=== PATIENT | female | born 1995 | race Caucasian/White ===

== ENCOUNTER 2023-12-08 15:11 | Emergency (ER) | payer MEDICAID ==
[2023-12-08] MEDS ORDERED: Ondansetron PF 4 MG/2 ML Vial ONE (15:46)
[2023-12-08] MEDS ORDERED: Sodium Chloride 0.9% 1,000 ML ONE (15:46)
[2023-12-08 16:13] LABS: #Basophils 0.1 thou/uL (0.0-0.2); #Monocytes 0.4 thou/uL (0.11-0.59); #Neutrophils 15.1 thou/uL (1.40-6.50); %Basophils 0.3 % (0.0-1.0); %Eosinophils 0.2 % (0.0-10.0); %Monocytes 2.2 % (0.0-10.0); %Neutrophils 91.3 % (42.0-75.0); Hematocrit 35.2 % (36.0-47.0); Hemoglobin 11.8 g/dL (12.0-16.0); Mean Corpuscular HGB CONC 33.5 g/dL (32.0-36.0); Mean Corpuscular Hemoglobin 30.6 pg (27.0-31.0); Mean Corpuscular Volume 91.4 fl (78.0-98.0); Mean Platelet Volume 7.7 fL (7.4-10.4); Platelet Count 262 10x3/uL (130-400); RBC Distribution Width 11.6 % (11.5-14.5); Red Blood Cell (RBC) Count 3.85 mill/uL (4.20-5.40); White Blood Cell (WBC) Count 16.6 10x3/uL (4.8-10.8)
[2023-12-08 16:30] LABS: ALT (SGPT) 12 U/L (8-55); AST (SGOT) 14 U/L (5-34); Albumin 3.7 g/dL (3.5-5.0); Alkaline Phosphatase 72 U/L (40-110); Anion Gap 15 mmol/L (10-20); BUN (Urea Nitrogen) 11 mg/dL (7.0-18.7); Bilirubin, Total 0.4 mg/dL (0.2-1.2); Calc. Creatinine Clearance 0 mL/min (70-130); Calcium 8.5 mg/dL (7.8-10.44); Carbon Dioxide 19 mmol/L (22-29); Chloride 107 mmol/L (98-107); Estimated GFR 127; Glucose 85 mg/dL (70-105); Lipase 49 U/L (8-78); Potassium 3.5 mmol/L (3.5-5.1); Protein, Total 6.7 g/dL (6.0-8.3); Sodium 137 mmol/L (136-145)
[2023-12-08 16:43] LABS: Bilirubin Negative (Negative); Blood, Urine Trace (Negative); Clarity Clear (Clear); Glucose, Urine (Dipstick) Negative (Negative); Ketone, Urine > or equal to 80 mg/dL (Negative); Leukocyte Negative (Negative); Nitrite Negative (Negative); Protein, Urine (Dipstick) Negative (Neg-Trace); pH, Urine 6.5 (5.0-9.0)
[2023-12-08 16:45] LABS: Specific Gravity, Urine 1.026 (1.002-1.036)
[2023-12-08 16:51] LABS: Bacteria/HPF Rare-Few HPF (None Seen); CAUTI Indications for Culture Pregnancy; Mucous/LPF 2+ LPF (<2+); Urine Culture Reflex Yes Yes
== END 2023-12-08 17:19 | disposition home or self-care (01) ==
LOC: MADERS 15:11
DX: O99.612 Diseases of the digestive system complicating pregnancy, second trimester (principal); A08.4 Viral intestinal infection, unspecified; Z3A.20 20 weeks gestation of pregnancy
CPT/HCPCS: 80053; 81001; 83690; 85025; 87086; 96361; 96374; J2405; J7050